=== PATIENT | male | born 1945 | race Caucasian/White ===

== ENCOUNTER → 2024-04-21 14:19 | Outpatient (BNVA) | payer MEDICARE, OTHER, SELFPAY | PROVIDERS: Visit Provider Nurse Practitioner Family | DX: D48.5 Neoplasm of uncertain behavior of skin (principal); L57.0 Actinic keratosis; L81.4 Other melanin hyperpigmentation; Z85.820 Personal history of malignant melanoma of skin; L73.8 Other specified follicular disorders | CPT/HCPCS: 11102; 17004; 99203 ==

== ENCOUNTER → 2024-08-20 15:12 | Outpatient (BNVA) | payer MEDICARE, OTHER, SELFPAY | PROVIDERS: PCP Family Medicine; Visit Provider Family Medicine | DX: Z12.5 Encounter for screening for malignant neoplasm of prostate (principal); I10 Essential (primary) hypertension; I25.10 Atherosclerotic heart disease of native coronary artery without angina pectoris; E78.00 Pure hypercholesterolemia, unspecified; N40.1 Benign prostatic hyperplasia with lower urinary tract symptoms; R35.1 Nocturia | CPT/HCPCS: 80053; 80061; 84443; 85025; G0103 ==